=== PATIENT | female | born 1945 | race Caucasian/White ===

== ENCOUNTER → 2019-06-03 | Outpatient (CLI) | payer BC, OTHER ==
--- NOTE | 2019-06-03 12:29 | KCIC ---
EXAM: Pelvis and left hip, 3 views; left femur, 2 views; bilateral knees, 3 views. HISTORY: Pain. COMPARISON: None. FINDINGS: A frontal view of the pelvis and left hip and femur are obtained. There is a right hip arthroplasty. There is asymmetric positioning of the femoral head component within the acetabular cup due to asymmetric liner wear. No periprosthetic fracture is seen. There is severe left hip joint space narrowing with subchondral sclerosis, marginal osteophytosis and bony remodeling. There is degenerative change involving the lower lumbar spine. There is suspected bone demineralization. Bilateral knees: 3 views of both knees are obtained. There is suggestion of left patella aniyah, possibly projectional. There is right greater than left triquetral spurring. There is a trace right knee effusion and there is a suprapatellar right knee joint loose body. There is enthesopathy along the patellae. There are soft tissue calcifications. There is chondrocalcinosis. IMPRESSION: 1. Right hip arthroplasty with suspected asymmetric liner wear. 2. Severe left hip osteoarthritis with associated bony remodeling. 3. Mild right greater than left knee osteoarthritis with chondrocalcinosis and suspected right knee joint loose body and trace right knee effusion. Electronically signed by: Brianna Araujo MD (06/03/2019 12:26 PM) [email or web address]
== END | disposition home or self-care (01) ==
LOC: KCIC 10:20
PROVIDERS: ATTEND Physician Assistant Medical
DX: M16.12 Unilateral primary osteoarthritis, left hip (principal); M17.0 Bilateral primary osteoarthritis of knee; M79.652 Pain in left thigh; M11.262 Other chondrocalcinosis, left knee; M11.261 Other chondrocalcinosis, right knee; M76.52 Patellar tendinitis, left knee; M76.51 Patellar tendinitis, right knee
CPT/HCPCS: 73502; 73552; 73562

== ENCOUNTER → 2020-08-03 | Outpatient (CLI) | payer BC, OTHER ==
--- NOTE | 2020-08-03 12:15 | RAD ---
EXAM: Pelvis and right hip, 2 views. HISTORY: Fall. COMPARISON: 06/03/2019 FINDINGS: A frontal view of the pelvis and 2 views of the right hip are obtained. There is a right hi p arthroplasty. There is asymmetric positioning of the right femoral head as separate component withi n the acetabular cup, suggesting asymmetric liner wear. This is stable in appearance. There is no per iprosthetic fracture. There is severe left hip joint space narrowing with degenerative subchondral sc lerosis, subchondral cyst formation, marginal spurring and flattening of the superior acetabulum and femoral head. There is degenerative change at the lower lumbar levels. IMPRESSION: 1. Right hip arthroplasty. There are suspected stable asymmetric liner wear. 2. Severe osteoarthritis of the left hip with bony remodeling and component of suspected cortical col lapse involving the superior articular aspect of the femoral head. Electronically signed by: Brianna Araujo MD (08/03/2020 12:13 PM) [id number]
--- NOTE | 2020-08-03 12:16 | RAD ---
EXAM: Left ankle, 3 views. HISTORY: Pain. COMPARISON: None. FINDINGS: 3 views of the left ankle are obtained. There is cortical irregularly along the inferior ti p of the lateral malleolus, suggesting an avulsion fracture of uncertain chronicity. There are tiny o ssicles inferior to the medial malleolus, likely due to sequela of remote injury. There is diffuse so ft tissue swelling. There is a moderate plantar spur and calcification along the plantar fascia. Ther e is minimal enthesopathy at the Achilles tendon insertion. IMPRESSION: 1. Cortical irregularly along the inferior lateral malleolus. This may be due to an osseous ridge or avulsion fracture of uncertain chronicity. Correlate for pain in this location. 2. Diffuse ankle soft tissue swelling. 3. Small plantar spur and ossification along the plantar fascia. Electronically signed by: Brianna Araujo MD (08/03/2020 12:14 PM) [id number]
--- NOTE | 2020-08-03 12:35 | RAD ---
EXAM: Bilateral knees, 3 views. HISTORY: Pain. COMPARISON: None. FINDINGS: 3 views of both knees are obtained. There is right greater than left triquetral spurring an d radial and lateral compartment chondrocalcinosis. There is a small left knee effusion. There are ri ght knee soft tissue calcifications and suspected right knee joint loose bodies. There is no fracture , dislocation or subluxation. IMPRESSION: 1. Mild tricompartmental osteoarthritis of the right greater than left knee and bilateral knee chondr ocalcinosis. 2. Small left knee effusion and suspected right knee joint loose bodies. Electronically signed by: Brianna Araujo MD (08/03/2020 12:32 PM) [id number]
== END ==
LOC: RAD 10:58
PROVIDERS: ATTEND Physician Assistant Medical
DX: M17.11 Unilateral primary osteoarthritis, right knee (principal); M17.12 Unilateral primary osteoarthritis, left knee; M17.0 Bilateral primary osteoarthritis of knee; M16.12 Unilateral primary osteoarthritis, left hip; M77.32 Calcaneal spur, left foot; M79.89 Other specified soft tissue disorders; M11.262 Other chondrocalcinosis, left knee; M11.261 Other chondrocalcinosis, right knee; M25.551 Pain in right hip; M25.552 Pain in left hip
CPT/HCPCS: 73521; 73610; 73562-50

== ENCOUNTER → 2020-09-02 | Outpatient (CLI) | payer BC, OTHER ==
--- NOTE | 2020-09-03 08:46 | RAD ---
EXAM: XR EXAM OF ANKLE_LEFT 3V 09/02/2020 10:26 AM CLINICAL INDICATION: Closed undisplaced fracture of lateral malleolus COMPARISON: Left ankle radiograph 10/03/2020 TECHNIQUE: AP, lateral, and oblique views of the left ankle FINDINGS: There has been interval healing of the small avulsion fracture at the tip the lateral mall eolus. The fracture line less conspicuous. There is a suspected healing nondisplaced fracture of the medial malleolus. The talar dome is intact. There are dystrophic calcifications in the distal Angela s tendon and plantar fascia. Mild circumferential soft tissue swelling. IMPRESSION: Healing nondisplaced lateral and medial malleoli fractures. Diffuse soft tissue swelling . Electronically signed by: Rachel Brown MD (09/03/2020 8:43 AM) [id number]
== END ==
LOC: RAD 10:06
PROVIDERS: ATTEND Physician Assistant Medical
DX: S82.65XD Nondisplaced fracture of lateral malleolus of left fibula, subsequent encounter for closed fracture with routine healing (principal); S82.55XD Nondisplaced fracture of medial malleolus of left tibia, subsequent encounter for closed fracture with routine healing; X58.XXXD Exposure to other specified factors, subsequent encounter
CPT/HCPCS: 73610